=== PATIENT | male | born 1970 | race Caucasian/White ===

== ENCOUNTER → 2017-01-03 | Outpatient (CLI) | payer OTHER ==
[2017-01-03 17:15] LABS: BASOPHIL # 0.1 K/uL (0.0-0.2); BASOPHIL % 0.7 %; EOSINOPHIL # 0.2 K/uL (0.0-0.5); EOSINOPHIL % 2.4 %; HEMATOCRIT 42.3 % (37.0-53.0); HEMOGLOBIN 14.3 g/dL (12.0-17.0); IMMATURE GRANULOCYTE % 0.3 %; LYMPHOCYTE # 1.3 K/uL (0.8-4.0); LYMPHOCYTE % 16.6 %; MCH 28.4 pg (27.0-34.0); MCHC 33.8 gm/dL (32.0-36.5); MCV 84.1 fl (83.0-98.0); MONOCYTE # 0.5 K/uL (0.0-1.0); NEUTROPHIL # (ANC) 5.5 K/uL (1.4-9.0); NRBC % 0 /100WBC (0-0.00); PLATELET COUNT 281 K/uL (150-450); RBC 5.03 M/uL (4.00-6.00); RDW-CV 13.5 % (11.9-14.6); WBC 7.5 K/uL (4.0-11.0)
[2017-01-03 17:32] LABS: ALBUMIN 3.6 gm/dL (3.5-5.0); ALK PHOS 96 IU/L (33-138); ALT 29 IU/L (12-78); ANION GAP 13.2 (10.0-19.0); AST 17 IU/L (10-40); BLOOD UREA NITROGEN 16 mg/dL (6-24); CALCIUM 8.4 mg/dL (8.5-10.5); CHLORIDE 110 mMol/L (96-110); CO2 23 mMol/L (22-32); CREATININE 0.9 mg/dL (0.6-1.3); ESTIMATED GFR (MDRD EQUATION) > 60; POTASSIUM 4.2 mMol/L (3.7-5.1); SODIUM 142 mMol/L (135-145); TOTAL BILIRUBIN 0.5 mg/dL (0.0-1.5); TOTAL PROTEIN 7.1 g/dL (6.0-8.4)
== END ==
LOC: LNHI 17:02
PROVIDERS: Internal Medicine Cardiovascular Disease
DX: I25.119 Atherosclerotic heart disease of native coronary artery with unspecified angina pectoris (principal); E78.2 Mixed hyperlipidemia

== ENCOUNTER → 2017-02-09 | Outpatient (CLI) | payer OTHER ==
--- NOTE | ~2017-02-09 | ESTC ---
Cardiac Perfusion Imaging Demographics Patient Name MARE Mandel Gender Male Patient Number [id number] Race Visit Number [id number] [place] [id number] Room Number Accession Number [id number] Height 70 inches Date of 1970 Weight 250 pounds Jacquelin ADAME Interpreting Ronn Darden Date of study 02/09/2017 Physician Supervising /LINCOLN VIGIL Technologist Kelly Mcfarlane Ordering Physician Cheikh Roper MD site damage prevention technician Stress ECG Reading Marissa Henley APRN Nurse Physician Procedure Procedure Type: Nuclear Stress Test:Exercise Procedure Start time: 02/09/2017 08:47 Indications: Chest discomfort. Risk Factors The patient risk factors include:obesity, treated and uncontrolled hypertension, chronic lung disease and dyslipidemia. Conclusions Summary Perfusion Images: The overall quality of the study is good. Left ventricular cavity is noted to be normal on the stress and rest studies. Stress SPECT images and Rest SPECT images demonstrate homogenous tracer distribution throughout the myocardium. Gated SPECT imaging reveals normal myocardial thickening and wall motion. The left ventricular ejection fraction was calculated to be 70%. Impression ECG portion of stress test is clinically negative for ischemia by diagnostic criteria. Myocardial perfusion imaging is normal. Overall left ventricular systolic function was normal without regional wall motion abnormalities. Stress Protocols Resting ECG Pre-stress physical exam: Patient assessed by Justyna SALGADO prior to testing. Chest - CTA Cardio - RRR, S1, S2 Peak HR:150 bpm HR response: Appropriate Peak BP:168/82 mmHg BP response: Appropriate Predicted HR: 172 bpm HR/BP product:51250 % of predicted HR: 87 Reason for termination:Target heart rate ECG Findings No further ECG changes suggestive of ischemia as compared to baseline abnormalities. Arrhythmias No rhythm abnormality. Symptoms Left Chest Sharpness without radiation - and resolution of pain at peak exercise. Shortness of breath. Complications Procedure complication: None. Stress Interpretation Patient walked for 8 minutes through 3 stages of VEE protocol. Appropriate hemodynamic response to exercise. No significant ST-T wave changes with exercise. EKG portion is negative for ischemia by diagnostic criteria. The Muhammad Treadmill score was 4 .This corresponds to a moderate risk stress test. Imaging Results Summed scores - Summed stress score: 5 - Summed rest score: 1 - Summed difference score: 4 Stress ejection Ejection fraction:69 % EDV :98 ml ESV :30 ml Stroke volume :68 ml LV mass :131 gr Imaging Protocols Rest Stress Isotope:Tc99m Sestamibi IV Isotope: Tc99m Sestamibi IV Isotope dose:15.2 mCi Isotope dose:44.3 mCi Date:02/09/2017 06:57 Date:02/09/2017 08:49 Technique: SPECT Technique: Gated Supine SPECT Supine Scan Time:45-60 minutes post Scan Time:15-30 minutes post injection injection Medical History Admission Data Admission date: 02/09/2017 Admission Time: 06:24 Hospital Status: Outpatient. Signatures dtt: TORY BRYAN dtd: 02/09/17 0847 Physician Self Edit
== END | disposition disaster alternative care site (69) ==
LOC: GRAD 06:24
DX: I25.10 Atherosclerotic heart disease of native coronary artery without angina pectoris (principal); E66.9 Obesity, unspecified; E78.5 Hyperlipidemia, unspecified; I10 Essential (primary) hypertension; J98.4 Other disorders of lung
CPT/HCPCS: A9500

== ENCOUNTER 2017-05-04 10:40 | Emergency (ER) | payer OTHER ==
--- NOTE | ~2017-05-04 | ER ---
PATIENT'S NAME: SARA GARVEY [facility] AGE: 46 Y [address] ROOM: [place] [address] LOCATION: ED ADMIT DATE: 05/04/2017 ER/Outpatient Report DISCHARGE DATE: 05/04/2017 FAMILY PHYSICIAN: Erwin Hernandez PA-C ATTENDING PHYSICIAN: Jeronimo Pemberton TIME OF ARRIVAL: 1040 hours. TIME OF EVALUATION: 1040 hours. CHIEF COMPLAINT: Stung by a wasp. HISTORY OF PRESENT ILLNESS: The patient is a 46-year-old male who presents to the emergency department today after being stung by a wasp. He reports that he was stung in the left hand 3 days prior to arrival. He is now having burning-type pain and numbness up into his left arm. He was not concerned until it started moving up his arm. He reports some mild shortness of breath with it as well. Denies any fevers or chills. No nausea or vomiting. No diarrhea or constipation. No chest pain. The patient does have a history of significant allergies in the past and does receive allergy shots. PAST MEDICAL HISTORY: COPD, coronary artery disease, and hypertension. PAST SURGICAL HISTORY: Stents, knee replacement, and ankle. SOCIAL HISTORY: The patient denies any tobacco, alcohol, or illicit drug use. ALLERGIES: NO KNOWN DRUG ALLERGIES. MEDICATIONS: Please see list. REVIEW OF SYSTEMS: All systems are reviewed by myself and are negative with the exception of those discussed in the HPI and Past Medical History. PHYSICAL EXAMINATION: PATIENT'S NAME: SARA GARVEY [facility] AGE: 46 Y [address] ROOM: [place] [address] LOCATION: [facility] ADMIT DATE: 05/04/2017 ER/Outpatient Report DISCHARGE DATE: 05/04/2017 FAMILY PHYSICIAN: Erwin Hernandez PA-C ATTENDING PHYSICIAN: Jeronimo Pemberton VITAL SIGNS: Weight 120 kg. Blood pressure 153/74, pulse 63, respiratory rate 20, temperature 97.8, and oxygen saturation 98% on room air. GENERAL: The patient is a 46-year-old male who appears stated age, in no acute distress at this time. HEENT: Head is normocephalic and atraumatic. Pupils are equal, round, and reactive to light and accommodation. Extraocular motions are intact. Nares are patent bilaterally. TMs are clear. Oropharynx is clear. NECK: Supple. There is no nuchal rigidity. CARDIOVASCULAR: Regular rate and rhythm. No murmurs, rubs, or gallops. LUNGS: Clear to auscultation bilaterally. No wheezes, rales, or rhonchi. ABDOMEN: Soft, nontender, and nondistended. No rebound, rigidity, or guarding. MUSCULOSKELETAL: The patient moves all 4 extremities. SKIN: Warm and dry. There are no rashes or lesions noted. LABORATORY AND X-RAY DATA: None. IMPRESSION: 1. Hymenopteran sting. 2. Initial visit. EMERGENCY DEPARTMENT COURSE: The patient was brought back to the examination room. Seen and evaluated by myself. The patient was given Solu-Medrol IM 125 mg. He does have an excellent overall clinical appearance at this time. His left hand is swollen. He does have some excoriations noted from scratching. I have written a prescription for prednisone for home as well as Keflex for home. I have discussed return to care instructions including worsening symptoms or any other concerns, to return to the emergency department as soon as possible. The patient is agreeable without further questions at this time. DISPOSITION,: The patient is discharged to home in good condition. DO AYESHA LU/mary /[id number] d: 05/04/17 1200 t: 05/06/17 0206, OUTPATIENT REPORT
== END 2017-05-04 11:04 | disposition disaster alternative care site (69) ==
LOC: GMED 10:40
DX: T63.481A Toxic effect of venom of other arthropod, accidental (unintentional), initial encounter (principal); J44.9 Chronic obstructive pulmonary disease, unspecified; I25.10 Atherosclerotic heart disease of native coronary artery without angina pectoris; I10 Essential (primary) hypertension; Z96.659 Presence of unspecified artificial knee joint; Z79.82 Long term (current) use of aspirin; Z79.899 Other long term (current) drug therapy
CPT/HCPCS: J2930